=== PATIENT | male | born 1970 | race Caucasian/White ===

== ENCOUNTER 2020-09-15 20:02 | Observation (INO) | payer OTHER ==
[2020-09-15 20:36] LABS: Absolute Lymphocytes (CBC) 2.4 K/uL (0.7-4.9); Basophils % 1.4 % (0-1.3); Hematocrit 46.8 % (39.6-49.0); Lymphocytes % 25.2 % (15.3-44.8); MPV 9.7 fL (7.6-11.3); RBC Red Blood Cell Count 5.33 M/uL (4.33-5.43)
--- NOTE | 2020-09-15 20:51 | RAD REPORT ---
EXAM DESCRIPTION: CT - Head Brain Wo Cont - 09/15/2020 8:31 pm CLINICAL HISTORY: syncope COMPARISON: None. TECHNIQUE: Computed axial tomography of the head was obtained. IV contrast was not requested. All CT scans are performed using dose optimization technique as appropriate and may include automated exposure control or mA/KV adjustment according to patient size. FINDINGS: An intracranial bleed is not seen . The ventricles are normal in caliber. No extra-axial fluid collection is noted. Fluid within the sinuses/ mastoids is not seen. IMPRESSION: No acute intracranial abnormality is seen. If patient's symptoms persist MRI of the bra in would be recommended.
[2020-09-15 20:52] LABS: Protime INR 1.11
[2020-09-15 20:56] LABS: ALT/SGPT 54 U/L (12-78); Albumin 3.9 g/dL (3.4-5.0); Alkaline Phosphatase 89 U/L (45-117); BUN Blood Urea Nitrogen 10 mg/dL (7-18); Bicarbonate 27 mmol/L (21-32); Bilirubin Direct 0.1 mg/dL (0-0.2); Bilirubin Total 0.5 mg/dL (0.2-1.0); Glucose Level 206 mg/dL (74-106); NT PRO-BNP 76 pg/mL (<125); Protein, Total 7.9 g/dL (6.4-8.2); Sodium Level 138 mmol/L (136-145); Troponin (Emerg Dept Use Only) < 0.02 ng/mL (0.0-0.045)
--- NOTE | 2020-09-15 20:56 | RAD REPORT ---
EXAM DESCRIPTION: Kimmie Single View09/15/2020 8:37 pm CLINICAL HISTORY: Chest pain COMPARISON: none FINDINGS: The lungs appear clear of acute infiltrate. The heart is normal size IMPRESSION: No acute abnormalities displayed
--- NOTE | 2020-09-15 21:03 | RAD REPORT ---
EXAM DESCRIPTION: RAD - Ankle Left 3 View -09/15/2020 8:39 pm CLINICAL HISTORY: Left ankle pain FINDINGS: Two screws affix a medial malleolar fracture. The fracture has not yet healed. No dislocation Calcific/bony densities adjacent to posterior upper aspect of a high calcaneus presumably are chronic . However, this should be correlated clinically
[2020-09-15 21:07] LABS: AST/SGOT 45 U/L (15-37); Magnesium 2.2 mg/dL (1.8-2.4); Potassium 4.7 mmol/L (3.5-5.1)
--- NOTE | 2020-09-15 21:26 | ER ---
Nurse's Notes [facility] Name: Antwan Evans Age: 49 yrs Sex: Male : 1970 Arrival Date: 09/15/2020 Time: 20:09 Bed 7 Private MD: Diagnosis: Chest pain, unspecified;Syncope and collapse Presentation: 09/15 20:09 Chief complaint: EMS states: called out for syncope that started after having chest em pain/tightness, pt reported near syncopal episode then felt better, an hour later sister in law found pt passed out and blue in the face, EMS reports HR of 38 on scene, 20 G LAC, pt currently denies chest pain A\T\Ox4, BGL 228. Coronavirus screen: Client denies travel out of the [place] in the last 14 days. Ebola Screen: Patient negative for fever greater than or equal to 101.5 degrees Fahrenheit, and additional compatible Ebola Virus Disease symptoms Patient denies exposure to infectious person. Patient denies travel to an Ebola-affected area in the 21 days before illness onset. No symptoms or risks identified at this time. Initial Sepsis Screen: Does the patient meet any 2 criteria? HR > 90 bpm. No. Patient's initial sepsis screen is negative. Does the patient have a suspected source of infection? No. Patient's initial sepsis screen is negative. Risk Assessment: Do you want to hurt yourself or someone else? Patient reports no desire to harm self or others. Onset of symptoms was September 15, 2020. 20:09 Method Of Arrival: EMS: [facility] em 20:09 Acuity: FRANTZ 2 em Historical: - Allergies: 20:13 No Known Allergies; em - Home Meds: 20:13 Metformin Oral [Active]; em - PMHx: 20:13 Diabetes - NIDDM; em - PSHx: 20:13 left ankle; lap band; em - Immunization history:: Adult Immunizations not up to date. - Social history:: Smoking status: Patient denies any tobacco usage or history of. Screenin:07 Abuse screen: Denies threats or abuse. Nutritional screening: No deficits noted. em Tuberculosis screening: No symptoms or risk factors identified. Fall Risk None identified. Assessment: 20:07 General: Appears in no apparent distress. comfortable, Behavior is calm, cooperative, em appropriate for age. Pain: Denies pain. Neuro: Level of Consciousness is awake, alert, obeys commands, Oriented to person, place, time, situation, Appropriate for age. Cardiovascular: Rhythm is junctional rhythm. Respiratory: Airway is patent Respiratory effort is even, unlabored, Respiratory pattern is regular, symmetrical. GI: Patient currently denies nausea, vomiting. Derm: Skin is intact, is healthy with good turgor, Skin is pink, warm \T\ dry. Musculoskeletal: Capillary refill < 3 seconds, Range of motion: intact in all extremities, Swelling present in left lateral malleolus and left medial malleolus Reports pain in left lateral malleolus and left medial malleolus. 21:25 Reassessment: Patient and/or family updated on plan of care and expected duration. Pain ea level reassessed. Patient is alert, oriented x 3, equal unlabored respirations, skin warm/dry/pink. 22:41 Reassessment: Patient and/or family updated on plan of care and expected duration. Pain ea level reassessed. Patient is alert, oriented x 3, equal unlabored respirations, skin warm/dry/pink. Awaiting for room assignment. 09/16 20:07 Reassessment: Patient and/or family updated on plan of care and expected duration. Pain ea level reassessed. Patient is alert, oriented x 3, equal unlabored respirations, skin warm/dry/pink. Pt admitted to second floor, report give to receiving nurse. Pt left ED via wheelchair per tech, pt tolerating well. Vital Signs: 09/15 20:09 BP 124 / 79; Pulse 108; Resp 20; Temp 97.8; Pulse Ox 98% on R/A; Weight 175.99 kg; em Height 6 ft. 3 in. (190.50 cm); Pain 0/10; 21:24 BP 129 / 75; Pulse 100; Resp 20; Pulse Ox 98% on R/A; ea 09/16 20:08 BP 118 / 67; Pulse 60; Resp 18; Pulse Ox 98% ; ea 09/15 20:09 Body Mass Index 48.50 (175.99 kg, 190.50 cm) em ED Course: 09/15 20:07 Patient has correct armband on for positive identification. Placed in gown. Call light em in reach. Side rails up X2. monitoring coordinator on. Pulse ox on. NIBP on. 20:07 Maintain EMS IV. Dressing intact. Good blood return noted. Site clean \T\ dry. Gauge \T\ em site: 20 G LAC. 20:09 Patient arrived in ED. em 20:09 Naseem East PA is PHCP. cp 20:09 Asad Cruz MD is Attending Physician. cp 20:12 Triage completed. em 20:13 Arm band placed on. em 20:20 EKG done, by ED staff, reviewed by Asad Cruz MD. em 20:52 Angle Gonzalez, CHAPIS is Primary Nurse. ea 21:25 Savannah Gutierrez MD is Hospitalizing Provider. cp 21:33 No provider procedures requiring assistance completed. Patient admitted, IV remains in ea place. 22:42 CT Chest For PE Angio In Process Unspecified. EDHI 09/16 05:33 Patient did not have IV access during this emergency room visit. bleeding controlled, jb5 Pressure dressing applied. 05:34 Inserted saline lock: 22 gauge in left hand, using aseptic technique. jb5 Administered Medications: 09/15 21:23 Drug: Aspirin Chewable Tablet 324 mg Route: PO; ea 22:42 Follow up: Response: No adverse reaction ea 09/16 01:15 Drug: Motrin 600 mg Route: PO; rv Outcome: 09/15 21:26 Decision to Hospitalize by Provider. cp 21:33 Instructed on the need for admit. ea 09/16 20:06 Admitted to Med/surg accompanied by tech, via wheelchair, room 212, with chart, Report ea called to Receiving nurse on second Condition: stable 20:28 Patient left the ED. ea Signatures: Dispatcher [employer] [facility] Albin Fierro RN RN em Naseem East PA PA cp Broussard, Jennifer jb5 Angle Gonzalez RN RN Lorenzo Bhakta RN RN rv Corrections: (The following items were deleted from the chart) 09/15 20:14 20:09 Chief complaint: EMS states: called out for syncope that started after having em chest pain/tightness, pt reported near syncopal episode then felt better, an hour later sister in law found pt passed out and blue in the face, EMS reports HR of 38 on scene, 20 G LAC, pt currently denies chest pain A\T\Ox4 em
--- NOTE | 2020-09-15 21:26 | EDPHYS ---
Physician Documentation [facility] Name: Antwan Evans Age: 49 yrs Sex: Male : 1970 Arrival Date: 09/15/2020 Time: 20:09 Bed 7 Private MD: ED Physician Asad Cruz HPI: 09/15 20:12 This 49 yrs old Male presents to ER via Unassigned with complaints of Syncope. cp 20:12 The patient has experienced syncope, lost consciousness. Onset: The symptoms/episode cp began/occurred just prior to arrival. Duration: This was a single episode, that lasted an unknown period of time. Associated injury: Left lower extremity: left ankle, pain, swelling, tenderness. 20:12 Associated signs and symptoms: Pertinent positives: chest pain, lightheadedness, cp Pertinent negatives: confusion, headache, seizure. 20:12 Current symptoms: Currently, the patient is not experiencing any symptoms, the patient cp feels back to baseline. Historical: - Allergies: 20:13 No Known Allergies; em - Home Meds: 20:13 Metformin Oral [Active]; em - PMHx: 20:13 Diabetes - NIDDM; em - PSHx: 20:13 left ankle; lap band; em - Immunization history:: Adult Immunizations not up to date. - Social history:: Smoking status: Patient denies any tobacco usage or history of. ROS: 20:20 Neuro: Positive for syncope. cp 20:20 Eyes: Negative for injury, pain, redness, and discharge. cp 20:20 Constitutional: Negative for body aches, chills, fever. 20:20 ENT: Negative for ear pain, sore throat, difficulty swallowing, difficulty handling secretions. 20:20 Neck: Negative for pain with movement, pain at rest, stiffness. 20:20 Cardiovascular: Positive for chest pain. 20:20 Respiratory: Negative for cough, shortness of breath, wheezing. 20:20 Abdomen/GI: Negative for abdominal pain, nausea, vomiting, and diarrhea. 20:20 Back: Negative for pain at rest, pain with movement. 20:20 MS/extremity: Positive for pain, swelling, tenderness, of the left ankle. 20:20 All other systems are negative. Exam: 20:25 Constitutional: The patient appears in no acute distress, alert, awake, cp non-diaphoretic, non-toxic, well developed, well nourished, obese. 20:25 Head/Face: Normocephalic, atraumatic. cp 20:25 Eyes: Periorbital structures: appear normal, Pupils: equal, round, and reactive to light and accomodation, Extraocular movements: intact throughout, Conjunctiva: normal, no exudate, no injection, Sclera: no appreciated abnormality, Lids and lashes: appear normal. 20:25 ENT: External ear(s): are unremarkable, Nose: is normal, Posterior pharynx: Airway: no evidence of obstruction, patent. 20:25 Neck: ROM/movement: is normal, is supple, without pain, no range of motions limitations. 20:25 Chest/axilla: Inspection: normal, Palpation: is normal, no crepitus, no tenderness. 20:25 Cardiovascular: Rate: tachycardic, Rhythm: regular, Edema: is not appreciated, JVD: is not appreciated. 20:25 Respiratory: the patient does not display signs of respiratory distress, Respirations: normal, no use of accessory muscles, no retractions, labored breathing, is not present, Breath sounds: are clear throughout, no decreased breath sounds, no stridor, no wheezing. 20:25 Abdomen/GI: Inspection: abdomen appears normal, Palpation: abdomen is soft and non-tender, in all quadrants. 20:25 Back: pain, is absent, ROM is normal. 20:25 Musculoskeletal/extremity: Joints: All joints are normal except the left ankle displays swelling, tenderness. 20:25 Neuro: Orientation: to person, place \\T\\ time. Mentation: is normal, Cerebellar function: is grossly normal, Motor: moves all fours, strength is normal, Sensation: is normal. 20:28 ECG was reviewed by the Attending Physician. cp 09/16 10:57 ECG was reviewed by the Attending Physician. cp Vital Signs: 09/15 20:09 BP 124 / 79; Pulse 108; Resp 20; Temp 97.8; Pulse Ox 98% on R/A; Weight 175.99 kg; em Height 6 ft. 3 in. (190.50 cm); Pain 0/10; 21:24 BP 129 / 75; Pulse 100; Resp 20; Pulse Ox 98% on R/A; ea 09/16 20:08 BP 118 / 67; Pulse 60; Resp 18; Pulse Ox 98% ; ea 09/15 20:09 Body Mass Index 48.50 (175.99 kg, 190.50 cm) em MDM: 09/15 20:12 Patient medically screened. cp 21:00 Differential Diagnosis: aortic aneurysm, drug effect, GI bleed, vasovagal episode. cp 21:30 Data reviewed: vital signs, nurses notes, lab test result(s), EKG, radiologic studies, cp plain films. 21:30 Test interpretation: by ED physician or midlevel provider: ECG, plain radiologic cp studies. Counseling: I had a detailed discussion with the patient and/or guardian regarding: the historical points, exam findings, and any diagnostic results supporting the discharge/admit diagnosis, lab results, radiology results, the need for further work-up and treatment in the hospital. 09/15 20:10 Order name: Basic Metabolic Panel; Complete Time: 21:10 09/15 21:10 Interpretation: Normal except: GLUC 206; GFR 66. 09/15 20:10 Order name: CBC with Diff; Complete Time: 20:51 09/15 20:51 Interpretation: Normal except: BASO% 1.4. cp 09/15 20:10 Order name: LFT's; Complete Time: 21:10 09/15 21:19 Interpretation: Normal except: AST 45; GLOB 4.0; A/G 1.0. 09/15 20:10 Order name: Magnesium; Complete Time: 21:10 09/15 20:10 Order name: NT PRO-BNP; Complete Time: 21:10 09/15 20:10 Order name: PT-INR; Complete Time: 21:10 09/15 20:10 Order name: Troponin (emerg Dept Use Only); Complete Time: 21:10 09/15 20:10 Order name: COVID-19 : Document "Date of Symptom Onset" if Symptomatic. 09/16 01:18 Order name: SARS-COV-2 RT PCR EDUT 09/16 02:21 Order name: Troponin I EDUT 09/16 05:37 Order name: CBC with Automated Diff EDUT 09/16 05:40 Order name: Basic Metabolic Panel EDUT 09/16 05:43 Order name: Troponin I EDUT 09/16 07:50 Order name: Glucose, Ancillary Testing EDUT 09/15 20:10 Order name: XRAY Chest (1 view) 09/15 20:10 Order name: EKG; Complete Time: 20:12 09/15 20:10 Order name: Cardiac monitoring; Complete Time: 20:33 09/15 20:10 Order name: EKG - Nurse/Tech; Complete Time: 20:33 09/15 20:10 Order name: IV Saline Lock; Complete Time: 20:33 09/15 20:10 Order name: Labs collected and sent; Complete Time: 20:33 09/15 20:10 Order name: CT Head Brain wo Cont 09/15 20:13 Order name: XRAY Ankle LEFT 3 view 09/15 20:53 Order name: CT; Complete Time: 21:10 EDMS 09/15 20:56 Order name: RAD; Complete Time: 21:10 EDMS 09/15 21:05 Order name: RAD; Complete Time: 21:10 EDUT 09/15 21:11 Interpretation: Report reviewed. 09/15 21:29 Order name: CT Chest For PE Angio 09/16 14:19 Order name: Glucose, Ancillary Testing EDUT 09/16 17:08 Order name: Glucose, Ancillary Testing EDUT 09/15 20:10 Order name: O2 Per Protocol; Complete Time: 20:33 09/15 20:10 Order name: O2 Sat Monitoring; Complete Time: 20:33 cp EC: Rate is 99 beats/min. Rhythm is regular. QRS interval is normal. QT interval is normal. cp T waves are Inverted in lead aVR. Interpreted by me. Reviewed by me. 09/16 10:57 Rate is 64 beats/min. Rhythm is regular. MO interval is prolonged at 300 msec. QRS cp interval is normal. QT interval is normal. T waves are Inverted in lead aVR. Interpreted by me. Reviewed by me. Administered Medications: 09/15 21:23 Drug: Aspirin Chewable Tablet 324 mg Route: PO; ea 22:42 Follow up: Response: No adverse reaction ea 09/16 01:15 Drug: Motrin 600 mg Route: PO; rv Disposition: 21:49 Co-signature as Attending Physician, Asad Cruz MD. rn Disposition: 09/15/20 21:26 Hospitalization ordered by Savannah Gutierrez for Observation. Preliminary diagnosis are Chest pain, unspecified, Syncope and collapse. - Bed requested for Telemetry/MedSurg (observation). - Status is Observation. ea - Condition is Stable. - Problem is new. - Symptoms have improved. Signatures: Dispatcher [employer] Carey Urbano, RN Albin Yañez, RN RN Asad Reynolds MD MD rn Roszak, Josh, PA PA jr8 Britany Kirby RN RN tl1 Naseem East PA PA cp Angle Gonzalez RN RN ea Lorenzo Bhakta RN RN rv Corrections: (The following items were deleted from the chart) 09/15 23:08 21:26 Hospitalization Ordered by Savannah Gutierrez MD for Observation. Preliminary tl1 diagnosis is Chest pain, unspecified; Syncope and collapse. Bed requested for Telemetry/MedSurg (observation). Status is Observation. Condition is Stable. Problem is new. Symptoms have improved. cp 09/16 18:57 09/15 23:08 09/15/2020 21:26 Hospitalization Ordered by Savannah Gutierrez MD for dw Observation. Preliminary diagnosis is Chest pain, unspecified; Syncope and collapse. Bed requested for [facility] ER HOLD. Status is Observation. Condition is Stable. Problem is new. Symptoms have improved. tl1 09/16 20:28 18:57 09/15/2020 21:26 Hospitalization Ordered by Savannah Gutierrez MD for Observation. ea Preliminary diagnosis is Chest pain, unspecified; Syncope and collapse. Bed requested for Telemetry/MedSurg (observation). Status is Observation. Condition is Stable. Problem is new. Symptoms have improved. dw
[2020-09-15] MEDS ORDERED: ASPIRIN 81 MG CHEWABLE TABLET ONE (21:36)
[2020-09-16] MEDS ORDERED: GLUCAGON 1 MG/VIAL IM PRN (01:03)
[2020-09-16] MEDS ORDERED: D50W 25 GM/50 ML SYRINGE IV PRN (01:03)
[2020-09-16] MEDS ORDERED: ONDANSETRON 4 MG/2 ML VIAL IV PRN (01:03)
[2020-09-16] MEDS ORDERED: IBUPROFEN 400 MG TAB ONE (01:27)
[2020-09-16] MEDS ORDERED: IBUPROFEN 200 MG TAB PO ONE (01:27)
--- NOTE | 2020-09-16 02:37 | P.HP ---
Certification for Inpatient Patient admitted to: Observation With expected LOS: <2 Midnights Patient will require the following post-hospital care: None Practitioner: I am a practitioner with admitting privileges, knowledge of patient current condition, hospital course, and medical plan of care. Services: Services provided to patient in accordance with Admission requirements found in Title 42 Section 412.3 of the Code of Federal Regulations <Erick Starr - Last Filed: 09/16/20 02:21> Patient History Date of Service: 09/16/20 Primary Care Provider: Dr. Smyth Reason for admission: syncope, chest pain r/o History of Present Illness: Mr. Evans is a 49 yo male with a history of T2DM (A1c 9.9%), HTN, and h/o DVT here today for syncope and chest pain. Today, he was sitting down when he became diaphoretic, hot and felt chest pressure. He describes the chest pressure as worse with deep breathing. He laid down and the symptoms resolved, then after 10 minutes they returned. Later, after eating, he bent down to charge his phone and passed out. When he came to, he reports bilateral lower extremity pain, now numbness in right calf. He is unable to recall how long he was out for but reports being initially disoriented. He denies any vision changes before syncope. He reports he had a DVT 3 years ago and was on Xarelto until 9 months ago. Recently he had a Doppler US that did not show any clotting. He reports 3-4 months of dark stools, blood and clots in the toilet. CT head was negative. Xrays of the feet only showed previous navicular fracture. CTPE was negative. EKG revealed accelerated junctional rhythm. Na 138, K 4.7, Cl 103, HCO3 27, BUN 10, Cr 1.19, Glu 206. H/H 16.2/46.8. WBC 9.3, Plt 181. Trop 0.02. BNP 76. Mg 2.2. Home medications list reviewed: No - Past Medical/Surgical History Has patient received pneumonia vaccine in the past: No Diabetic: Yes -: type 2 diabetes mellitus -: hypertension -: h/o of DVT -: left ankle surgery and achilles tendon repair -: lap band -: ganglion cyst removal -: varicose vein stripping - Family History Mother -: Heart disease, Diabetes, Stroke Father -: Heart disease, Diabetes, Stroke - Social History Smoking Status: Never smoker Counseled patient to stop smoking for: less than 10 minutes Smoking therapy provided: No Alcohol use: Yes CD- Drugs: No Caffeine use: No Place of Residence: Home <Erick Starr - Last Filed: 09/16/20 02:21> Date of Service: 09/16/20 <Savannah Gutierrez - Last Filed: 09/22/20 01:57> Allergies No Known Allergies Allergy (Unverified 09/16/20 01:03) Review of Systems General: Sweats, As per HPI Eyes: Unremarkable ENT: Unremarkable Respiratory: As per HPI Cardiovascular: Chest Pain, As per HPI Gastrointestinal: Melena, As per HPI Genitourinary: Unremarkable Musculoskeletal: Leg Pain, Foot Pain, As per HPI Integumentary: Unremarkable Neurological: As per HPI Lymphatics: Unremarkable <Erick Starr - Last Filed: 09/16/20 02:21> Physical Examination - Vital Signs Temperature: 97.8 F Blood Pressure: 124/79 Pulse: 108 Respirations: 20 Pulse Ox (%): 98 - Physical Exam General: Alert, In no apparent distress, Oriented x3, Cooperative HEENT: Atraumatic, Normocephalic, PERRLA, Mucous membr. moist/pink, EOMI Neck: Supple, 2+ carotid pulse no bruit, JVD not distended, No Thyromegaly Respiratory: Clear to auscultation bilaterally, Normal air movement Cardiovascular: No edema, Normal pulses, Normal S1 S2, No gallops, No rubs, No murmurs, Irregular heart rate/rhythm Capillary refill: <2 Seconds Gastrointestinal: Normal bowel sounds, Soft and benign, Non-distended, No tenderness, No masses Musculoskeletal: No clubbing, No contractures, No erythema, No warmth, Swelling, Tenderness Integumentary: No rashes, No breakdown, No significant lesion, No warmth, No cyanosis, Tenderness/swelling, Erythema Neurological: Normal speech, Normal tone, Sensation intact, Cranial nerves 3-12 intact, Normal affect, Abnormal strength Lymphatics: No axilla or inguinal lymphadenopathy - Studies Laboratory Data (last 24 hrs) 09/15/20 20:25: PT 13.1 H, INR 1.11 01/27/21 20:25: WBC 9.30, Hgb 16.2, Hct 46.8, Plt Count 181 09/15/20 20:25: Sodium 138, Potassium 4.7, BUN 10, Creatinine 1.19, Glucose 206 H, Magnesium 2.2, Total Bilirubin 0.5, AST 45 H, ALT 54, Alkaline Phosphatase 89 <MattyErick - Last Filed: 09/16/20 02:21> Assessment and Plan - Problems (Diagnosis) (1) Syncope and collapse Onset Date: ~09/15/20 Status: Acute Plan: vasovagal vs orthostatic vs cardiac vs blood glucose vs unknown origin - will obtain orthostatic vital signs - no history of cardiac issues. blood pressure well controlled on presentation. has not had stress test before but had one scheduled for end of September. troponins negative. EKG showed accelerated junctional rhythm. cardiology referral for evaluation of CAD, arrhythmias, or valvular dz - blood glucose was 225 on presentation. patient has does not check BG at home but denies episodes of hypoglycemia. patient does take glipizide 10mg. - CT head was negative (2) Chest pain Onset Date: ~09/15/20 Status: Acute Plan: - cardiology consult placed for further workup. troponins negative, however EKG showed accelerated junctional rhythm. Qualifiers: Chest pain type: chest pain on breathing Qualified Code(s): R07.1 - Chest pain on breathing; R07.81 - Pleurodynia (3) Type 2 diabetes mellitus Status: Chronic Plan: - A1c 9.9% as of today - will start sliding scale insulin for inpatient management Qualifiers: Diabetes mellitus terminal press operator insulin use: with terminal press operator use Diabetes mellitus complication status: without complication Qualified Code(s): E11.9 - Type 2 diabetes mellitus without complications; Z79.4 - director long term care (current) use of insulin (4) Hypertension Status: Chronic Plan: - HTN well controlled to 124/79 at presentation. will continue to monitor. (5) History of DVT (deep vein thrombosis) Status: Chronic Plan: -CTPE was normal -patient reports doppler US this week that showed no clots (6) Complaint of melena Status: Chronic Plan: - patient reports 3-4 months of melena and clots in the stool however H/H is 16.2/46.8. Should see GI on an outpatient basis as is stable currently. (7) Foot pain, bilateral Onset Date: ~09/15/20 Status: Acute Plan: -Xrays of foot were normal and only showed old navicular fracture consistent with patient history - patient requested to not have any opiates for pain, would prefer Tylenol or Alleve for any pain management needs Discharge Plan: Home Plan to discharge in: 24 Hours - Advance Directives Does patient have a Living Will: No Does patient have a Durable POA for Healthcare: No - Code Status/Comfort Care Code Status Assessed: Yes (full code) Code Status: Full Code Critical Care: No Time Spent Managing Pts Care (In Minutes): 70 <Erick Starr - Last Filed: 09/16/20 02:21> - Problems (Diagnosis) (1) Chest pain Onset Date: ~09/15/20 Status: Acute Qualifiers: Chest pain type: chest pain on breathing Qualified Code(s): R07.1 - Chest pain on breathing; R07.81 - Pleurodynia (2) Syncope and collapse Onset Date: ~09/15/20 Status: Acute (3) History of DVT (deep vein thrombosis) Status: Chronic (4) Hypertension Status: Chronic (5) Type 2 diabetes mellitus Status: Chronic Qualifiers: Diabetes mellitus terminal press operator insulin use: with terminal press operator use Diabetes mellitus complication status: without complication Qualified Code(s): E11.9 - Type 2 diabetes mellitus without complications; Z79.4 - half-way (current) use of insulin <Savannah Gutierrez - Last Filed: 09/22/20 01:57> Date of Service: 09/16/20 I agree with plan of care as mentioned below. Continue with current treatment plan. <Savannah Gutierrez - Last Filed: 09/22/20 01:57>
[2020-09-16 05:31] LABS: Absolute Lymphocytes (CBC) 3.1 K/uL (0.7-4.9); Basophils % 1.1 % (0-1.3); Lymphocytes % 35.8 % (15.3-44.8); MPV 9.6 fL (7.6-11.3); RBC Red Blood Cell Count 4.94 M/uL (4.33-5.43)
[2020-09-16 05:40] LABS: BUN Blood Urea Nitrogen 11 mg/dL (7-18); Bicarbonate 27 mmol/L (21-32); Glucose Level 138 mg/dL (74-106); Potassium 3.4 mmol/L (3.5-5.1); Sodium Level 137 mmol/L (136-145)
[2020-09-16] MEDS: INSULIN -REGULAR HUMAN 50 UNIT/0.5 ML ML SQ SCH ×4 (07:30→21:00)
[2020-09-16] MEDS: ASPIRIN EC 81 MG TAB PO SCH (09:00)
[2020-09-16] MEDS ORDERED: ASPIRIN EC 81 MG TAB PO ONE (09:46)
--- NOTE | 2020-09-16 11:26 | RAD REPORT ---
EXAM DESCRIPTION: CT - Chest For Pe Angio - 09/16/2020 6:22 am CLINICAL HISTORY: The patient is 49 years old and is Male; syncope TECHNIQUE: Axial computed tomographic angiography images of the chest with intravenous contrast. S agittal and coronal reformatted images were created and reviewed. This CT exam was performed using one or more of the following dose reduction techniques: automated exposure control, adjustment of t he mA and/or kV according to patient size, and/or use of iterative reconstruction technique. MIP reconstructed images were created and reviewed. COMPARISON: No relevant prior studies available. FINDINGS: ARTIFACTS: The exam is suboptimal secondary to motion artifact. PULMONARY ARTERIES: The main pulmonary arteries opacify normally and are without filling defect. AORTA: No acute findings. No thoracic aortic aneurysm. LUNGS: Calcified granuloma within the left lower lobe is present. The lungs are otherwise clear. No mass. PLEURAL SPACE: Unremarkable. No significant effusion. No pneumothorax. HEART: Unremarkable. No cardiomegaly. No significant pericardial effusion. No evidence of RV dysfunction. BONES/JOINTS: No acute fracture. No dislocation. SOFT TISSUES: Unremarkable. LYMPH NODES: Unremarkable. No enlarged lymph nodes. LIVER: The liver is enlarged and diffusely fatty. TUBES, LINES AND DEVICES: A gastric lap band is present. IMPRESSION: 1. The main pulmonary arteries opacify normally and are without filling defect. The remainder of the pulmonary vessels are inadequately evaluated secondary to contrast timing and motion artifact. 2. No acute findings. 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 The interpreting r adiologist is fully responsible for the content of the report.
[2020-09-16] MEDS ORDERED: KETOROLAC 30 MG/ML INJ IV ONE (14:38)
[2020-09-16] MEDS ORDERED: ACETAMINOPHEN 500 MG TAB ONE (15:14)
[2020-09-16] MEDS ORDERED: ACETAMINOPHEN 325 MG TABLET PO PRN (16:41)
[2020-09-16] MEDS ORDERED: ACETAMINOPHEN 325 MG TABLET PO ONE (16:41)
[2020-09-16] MEDS ORDERED: INSULIN -REGULAR HUMAN 50 UNIT/0.5 ML ML ONE (17:28)
--- NOTE | 2020-09-16 20:53 | RAD REPORT ---
EXAM DESCRIPTION: - CP - 09/16/2020 8:45 pm CLINICAL HISTORY: Syncope Headache, drowsiness COMPARISON: No comparisons TECHNIQUE: Real-time sonographic evaluation of both carotid systems was performed. Doppler interroga tion was performed with waveform tracing bilaterally. FINDINGS: Normal high resistance waveforms are noted in both external carotid arteries. The common c arotid arteries and internal carotid arteries show normal low resistance waveforms. Minimal plaque is seen in both carotid bulbs. Peak systolic and end diastolic velocity values and the ICA/CCA ratios are in the non-hemodynamically significant range. Antegrade flow seen in both vertebral arteries. IMPRESSION: Minimal plaque in both carotid bulbs noted. No evidence of a hemodynamically significant stenosis.
[2020-09-16 21:21] VITALS: BMI 43.9
[2020-09-16 22:57] VITALS: O2SAT 95
[2020-09-17] MEDS: INSULIN -REGULAR HUMAN 50 UNIT/0.5 ML ML SQ SCH (07:30)
--- NOTE | 2020-09-17 07:51 | EKG ---
Test Date: 2020-09-15 Test Time: 20:20:27 Pumper Gager: MEME MEASUREMENT RESULTS: Intervals: Rate: 99 VA: QRSD: 94 QT: 352 QTc: 451 Reading: P: VA: QRS: -44 T: 43 INTERPRETIVE STATEMENTS: Accelerated Junctional rhythm with premature ventricular complexes or fusion complexes Left axis deviation Abnormal ECG No previous ECG available for comparison Electronically Signed On 09-17-20 07:49:27 BRIM BUSTER by Marcos Calle
--- NOTE | 2020-09-17 07:52 | EKG ---
Test Date: 2020-09-16 Test Time: 10:50:31 Wash Operator: CLAIR MEASUREMENT RESULTS: Intervals: Rate: 64 CO: 300 QRSD: 92 QT: 422 QTc: 435 Alborn: P: 44 CO: 300 QRS: -37 T: 38 INTERPRETIVE STATEMENTS: Sinus rhythm with 1st degree AV block Left axis deviation Abnormal ECG Compared to ECG 09/15/2020 20:20:27 First degree AV block now present Accelerated junctional rhythm no longer present Fusion complex(es) no longer present Ventricular premature complex(es) no longer present Electronically Signed On 09-17-20 07:49:37 FLIGHT SERVICE AGENT by Marcos Calle
[2020-09-17] MEDS ORDERED: REGADENOSON 0.4 MG/5 ML SYR IV ONE (08:25)
[2020-09-17 08:44] VITALS: BP 112/56; TEMP 97.6
[2020-09-17] MEDS: ASPIRIN EC 81 MG TAB PO SCH (09:00)
[2020-09-17 09:07] LABS: BUN Blood Urea Nitrogen 10 mg/dL (7-18); Bicarbonate 30 mmol/L (21-32); Glucose Level 172 mg/dL (74-106); Potassium 4.1 mmol/L (3.5-5.1); Sodium Level 138 mmol/L (136-145)
--- NOTE | 2020-09-17 09:22 | P.PN ---
Subjective Date of Service: 09/16/20 Patient still having some chest discomfort. Concern for having the syncopal event. Has had a stress test in the past. Review of Systems 10-point ROS is otherwise unremarkable Physical Examination - Vital Signs Temperature: 97.6 F Blood Pressure: 112/56 Pulse: 57 Respirations: 20 Pulse Ox (%): 96 - Physical Exam General: Alert, In no apparent distress, Oriented x3 Respiratory: Diminished, Crackles/rales Cardiovascular: Regular rate/rhythm, Normal S1 S2, No murmurs Gastrointestinal: Normal bowel sounds, Soft and benign, Non-distended, No tenderness, No rebound, No guarding Musculoskeletal: No clubbing, No swelling, No tenderness Neurological: Sensation intact, Cranial nerves 3-12 intact - Studies Medications List Reviewed: Yes Assessment & Plan - Problems (Diagnosis) (1) Chest pain Onset Date: ~09/15/20 Current Visit: Yes Status: Acute Qualifiers: Chest pain type: chest pain on breathing Qualified Code(s): R07.1 - Chest pain on breathing; R07.81 - Pleurodynia (2) Syncope and collapse Onset Date: ~09/15/20 Current Visit: Yes Status: Acute (3) History of DVT (deep vein thrombosis) Current Visit: Yes Status: Chronic (4) Hypertension Current Visit: Yes Status: Chronic (5) Type 2 diabetes mellitus Current Visit: Yes Status: Chronic Qualifiers: Diabetes mellitus senior care insulin use: with manager long term care use Diabetes mellitus complication status: without complication Qualified Code(s): E11.9 - Type 2 diabetes mellitus without complications; Z79.4 - 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 Stress testing 2. Continue with cardiac medications 3. Echocardiogram pending 4. Anticipate discharge in the morning Discharge Plan: Home Plan to discharge in: Greater than 2 days - Advance Directives Does patient have a Living Will: No Does patient have a Durable POA for Healthcare: No - Code Status/Comfort Care Code Status: Full Code Critical Care: No Time Spent Managing PTS Care (In Minutes): 35
--- NOTE | 2020-09-17 09:48 | RAD REPORT ---
EXAM DESCRIPTION: NM - Rest Stress Cardiac Imaging - 09/17/2020 9:35 am CLINICAL HISTORY: Syncope COMPARISON: None. TECHNIQUE: The patient was administered 10.4 mCi of Tc 99m Sestamibi prior to resting SPECT imaging of the heart. The patient was then administered 30.2 mCi of Tc 99m Sestamibi following exercise or ph armacologic stress. Multiplanar SPECT images were reviewed. FINDINGS: Moderate area of diminished radiotracer uptake involves the inferior left ventricular rey cardium on both rest and stress sequences. Small area of diminished radiotracer activity involves the apical left ventricular myocardium on stre ss sequences. This demonstrates normal uptake on rest images. . The left ventricular ejection fraction equals 54% IMPRESSION: Small reversible perfusion defect apical left ventricular myocardium may indicate stress -induced ischemia Moderate apparent fixed perfusion defect inferior left ventricular myocardium may indicate an infarct or attenuation from the diaphragm
[2020-09-17] MEDS ORDERED: KETOROLAC 30 MG/ML INJ IV ONE (11:05)
--- NOTE | 2020-09-17 11:13 | TREADPHA ---
DX: ABNORMAL ELECTROCARDIOGRAM, CHEST PAIN Date of Study: 09/17/2020 Ht: 6' 3 " Wt: 351 lb 3.2 oz Consulting Physician: GERMÁN MEDICATIONS: TYLENOL, ASPIRIN, DEXTROSE, GLUCAGEN, NOVOLIN-R, ZOFRAN HISTORY: 49 YEAR OLD MALE COMPLAINTS OF PASSED OUT. MEDICAL HISTORY OF DIABETES MELLITUS, HIGH CHOLESTEROL, NON SMOKER, OCCASIONAL DRINKER. PHYSICIAL EXAMINATION: RESTING B.P.: 119/64 RESTING H.R.: 57 RESTING EKG: SINUS BRADYCARDIA, FIRST DEGREE AV BLOCK, RIGHT BUNDLE BRANCH BLOCK. PROTOCOL: PHARMACOLOGIC EXERCISE TIME: 3:30 B.P. AT PEAK STRESS: 188/60 IMPRESSION: LEXISCAN INJECTED. CARDIOLITE INJECTED PER PROTOCOL. SEE NUCLEAR MEDICINE REPORT. NO SUPRAVENTRICULAR TACHYCARDIA. NO VENTRICULAR TACHYCARDIA. NO PREMATURE VENTRICULAR COMPLEXES. DENIED CHEST PAIN.
--- NOTE | 2020-09-18 00:37 | CON ---
Date of Consultation: 09/17/2020 Reason For Consultation: Chest pain and syncope. History Of Present Illness: Mr. Evans is a 49-year-old male with a history of dyslipidemia, diabet es, and arthritis. He has morbid obesity as well. Came in with a syncopal episode. He has had a ne gative CT of his head, negative carotid angiogram, negative carotid Doppler, negative chest x-ray. G lucose of 180. Otherwise, normal EKG, normal troponin, normal BNP. He had atypical chest pain prior to his syncope. He has been taking Lasix and Zestril at home. He was noted to have some bradycardi a as well. Echocardiogram and Lexiscan were also unremarkable. He is asymptomatic now. Past Medical History: Include diabetes and dyslipidemia. Review of Systems: Negative. Social History: Negative. Family History: Noncontributory. Medications: At home include Lasix, Jardiance, Zestril, metformin, and Mobic. Physical Examination: He weighed 351 pounds. Examination reported by Dr. Gutierrez to be within normal limit. Diagnostic Data: As stated earlier. Impression And Plan: Syncope, most likely secondary to orthostatic hypotension from the Lasix and Ze stril combination. He does have bradycardia, that needs to be investigated further. He had an exten sive workup including an echocardiogram, Lexiscan, x-ray, carotid, CT of his head, all of which are n egative. I am comfortable with him going home. I will make an arrangement for him to have a 7-day e vent monitor to rule out significant bradycardia or other arrhythmias. I will continue his present r egimen right now except I would hold the Lasix. I will discuss the case further with Dr. Gutierrez. MARY/SOWMYA Voice ID: [id number] Report ID: [id number]
[2020-09-18] MEDS ORDERED: FUROSEMIDE 20 MG TABLET PO SCH (09:00)
[2020-09-18] MEDS ORDERED: ROSUVASTATIN 10 MG TAB PO SCH (09:00)
[2020-09-18] MEDS ORDERED: HOME MED 1 EA UNK (Empagliflozin [Jardiance] 25 MG Tablet) PO SCH (09:00)
[2020-09-18] MEDS ORDERED: lisinopriL 5 MG TAB PO SCH (09:00)
[2020-09-18] MEDS ORDERED: glipiZIDE 5 MG TAB PO SCH (09:00)
--- NOTE | 2020-09-22 01:58 | P.DS ---
Discharge Date: 09/17/20 Primary Care Provider: Dr. Symth Disposition: ROUTINE DISCHARGE Discharge Condition: GOOD Reason for Admission: syncope, chest pain r/o - Problems (1) Chest pain Onset Date: ~09/15/20 Status: Acute Qualifiers: Chest pain type: chest pain on breathing Qualified Code(s): R07.1 - Chest pain on breathing; R07.81 - Pleurodynia (2) Syncope and collapse Onset Date: ~09/15/20 Status: Acute (3) History of DVT (deep vein thrombosis) Status: Chronic (4) Hypertension Status: Chronic (5) Type 2 diabetes mellitus Status: Chronic Qualifiers: Diabetes mellitus chcf insulin use: with chcf use Diabetes mellitus complication status: without complication Qualified Code(s): E11.9 - Type 2 diabetes mellitus without complications; 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 Evans is a 49 yo male with a history of T2DM (A1c 9.9%), HTN, and h/o DVT here today for syncope and chest pain. Today, he was sitting down when he became diaphoretic, hot and felt chest pressure. He describes the chest pressure as worse with deep breathing. He laid down and the symptoms resolved, then after 10 minutes they returned. Later, after eating, he bent down to charge his phone and passed out. When he came to, he reports bilateral lower extremity pain, now numbness in right calf. He is unable to recall how long he was out for but reports being initially disoriented. He denies any vision changes before syncope. He reports he had a DVT 3 years ago and was on Xarelto until 9 months ago. Recently he had a Doppler US that did not show any clotting. He reports 3-4 months of dark stools, blood and clots in the toilet. CT head was negative. Xrays of the feet only showed previous navicular fracture. CTPE was negative. EKG revealed accelerated junctional rhythm. Na 138, K 4.7, Cl 103, HCO3 27, BUN 10, Cr 1.19, Glu 206. H/H 16.2/46.8. WBC 9.3, Plt 181. Trop 0.02. BNP 76. Mg 2.2. Hospital Course: Nonstress test with a small questionable reversible ischemia. Echocardiogram was normal. Patient did need an event monitor which she will follow up as an outpatient to get. At this time patient is stable for discharge for cardiology without patient followup. Vital Signs/Physical Exam: Temp Pulse Resp BP Pulse Ox 97.6 F 57 20 112/56 L 96 09/22/20 01:56 09/22/20 01:56 09/22/20 01:56 09/22/20 01:56 09/22/20 01:56 General: Alert, In no apparent distress, Oriented x3 Laboratory Data at Discharge: WBC 8.60 K/uL (4.3-10.9) 09/16/20 05:17 Hgb 14.9 g/dL (13.6-17.9) 09/16/20 05:17 Hct 43.0 % (39.6-49.0) 09/16/20 05:17 Plt Count 174 K/uL (152-406) 09/16/20 05:17 PT 13.1 SECONDS (9.5-12.5) H 09/15/20 20:25 INR 1.11 09/15/20 20:25 Sodium 138 mmol/L (136-145) 09/17/20 08:41 Potassium 4.1 mmol/L (3.5-5.1) 09/17/20 08:41 BUN 10 mg/dL (7-18) 09/17/20 08:41 Creatinine 0.90 mg/dL (0.55-1.3) 09/17/20 08:41 Glucose 172 mg/dL (74-106) H 09/17/20 08:41 Magnesium 2.2 mg/dL (1.8-2.4) 09/15/20 20:25 Total Bilirubin 0.5 mg/dL (0.2-1.0) 09/15/20 20:25 AST 45 U/L (15-37) H 09/15/20 20:25 ALT 54 U/L (12-78) 09/15/20 20:25 Alkaline Phosphatase 89 U/L (45-117) 09/15/20 20:25 Troponin I < 0.02 ng/mL (0.0-0.045) 09/16/20 05:17 Home Medications: Empagliflozin [Jardiance] 25 mg PO DAILY 09/16/20 Furosemide 20 mg PO DAILY 09/16/20 Lisinopril [Zestril] 2.5 mg PO DAILY 09/16/20 Meloxicam [Mobic] 15 mg PO DAILY 09/16/20 Metformin HCl 1,000 mg PO BID 09/16/20 Rosuvastatin [Crestor*] 10 mg PO DAILY 09/16/20 glipiZIDE [Glipizide] 10 mg PO DAILY 09/16/20 Aspirin [Aspirin EC 81 MG] 81 mg PO DAILY #30 tablet. 09/17/20 New Medications: Aspirin [Aspirin EC 81 MG] 81 mg PO DAILY #30 tablet. Physician Discharge Instructions: PROBLEM: Chest pain, Syncope GOAL: Clear understanding of disease process INSTRUCTIONS: - Ok to discontinue IV and discharge home. - Follow up with your primary care provider in 1-2 weeks. - Follow up with Dr. Calle, cardiology, next week. - Return to the ER if symptoms worsen. - Call or text Dr. Gutierrez at if any questions regarding hospital stay. - Please call the floor at if any medication or nursing questions. Diet: Heart healthy Activity: Fall precautions IMMUNIZATION Influenza Vaccine Indicated: No Influenza Vaccine Given: Date Given: Pneumonia Vaccine Indicated: No Pneumonia Vaccine Given: Date Given: Diet: AHA Activity: Fall precautions Followup: Marcos Calle MD [ACTIVE - CAN ADMIT] - (Call office on Sunday to schedule an appointment.) Time spent managing pt's care (in minutes): 35
== END 2020-09-17 12:31 | disposition home or self-care (01) ==
LOC: ER 20:02 → ERHOLD 23:07 → 2ND 09-16 20:39
PROVIDERS: ADMIT Hospitalist; ATTEND Hospitalist
DX: R55 Syncope and collapse (principal); R07.1 Chest pain on breathing; E11.9 Type 2 diabetes mellitus without complications; I10 Essential (primary) hypertension; R00.1 Bradycardia, unspecified; K92.1 Melena; M79.672 Pain in left foot; M79.671 Pain in right foot; E78.5 Hyperlipidemia, unspecified; M19.90 Unspecified osteoarthritis, unspecified site; E66.01 Morbid (severe) obesity due to excess calories; Z68.41 Body mass index [BMI] 40.0-44.9, adult; Z86.718 Personal history of other venous thrombosis and embolism; Z98.84 Bariatric surgery status; Z20.822 Contact with and (suspected) exposure to COVID-19; Z82.49 Family history of ischemic heart disease and other diseases of the circulatory system; Z82.3 Family history of stroke; Z83.3 Family history of diabetes mellitus
CPT/HCPCS: 93005 ×2; 93017; 85025 ×2; 80048 ×3; 36415 ×2; 83735; 85610; 82947 ×4; 80076; 84484 ×3; 83880; 70450; 71275; 71045; 73610; 93880; 78452; 99285; U0003; Q9967; J2785; A9500; G0378